=== PATIENT | female | born 1990 | race Caucasian/White ===

== ENCOUNTER 2024-03-27 02:44 | Emergency (ER) | payer SELFPAY ==
[~2024-03-27] VITALS: Ht 167.6 cm; Wt 58.1 kg
[2024-03-27 02:47] VITALS: BP_SYST 144; PULSE 82; RESP 19; TEMP 97.6; O2SAT 99
[2024-03-27 02:52] VITALS: BP_SYST 144; PULSE 82; RESP 18; TEMP 97.6; O2SAT 99
== END 2024-03-27 02:52 ==
LOC: SED 02:44
DX: Z02.89 Encounter for other administrative examinations (principal); Z91.013 Allergy to seafood; Z88.8 Allergy status to other drugs, medicaments and biological substances
CPT/HCPCS: 99283

== ENCOUNTER 2024-04-05 19:19 | Emergency (ER) | payer OTHER ==
[~2024-04-05] VITALS: Ht 167.6 cm; Wt 54.4 kg
[2024-04-05 19:21] VITALS: BP_SYST 121; PULSE 99; RESP 18; TEMP 97.5; O2SAT 98
[2024-04-05 20:36] VITALS: BP_SYST 121; PULSE 99; RESP 18; TEMP 97.5; O2SAT 98
== END 2024-04-05 20:37 | disposition home or self-care (01) ==
LOC: SED 19:19
DX: B34.9 Viral infection, unspecified (principal); Z20.822 Contact with and (suspected) exposure to COVID-19; Z91.013 Allergy to seafood; Z88.8 Allergy status to other drugs, medicaments and biological substances
CPT/HCPCS: 36415; 99283

== ENCOUNTER 2024-04-29 13:57 | Emergency (ER) | payer OTHER ==
[~2024-04-29] VITALS: Ht 167.6 cm; Wt 58.1 kg
[2024-04-29 14:10] VITALS: BP_SYST 120; PULSE 104; RESP 16; TEMP 97.8; O2SAT 99
[2024-04-29] MEDS ORDERED: HYDR-3917 PO (14:11)
[2024-04-29] MEDS ORDERED: NEOM28.37 TP (14:11)
[2024-04-29 14:38] VITALS: BP_SYST 120; PULSE 104; RESP 16; TEMP 97.8; O2SAT 99
== END 2024-04-29 14:37 | disposition home or self-care (01) ==
LOC: SED 13:57
DX: L55.9 Sunburn, unspecified (principal); R00.2 Palpitations; Z91.013 Allergy to seafood; Z88.8 Allergy status to other drugs, medicaments and biological substances; Z79.899 Other long term (current) drug therapy; Z79.2 Long term (current) use of antibiotics
CPT/HCPCS: 99283

== ENCOUNTER 2024-05-17 20:36 | Emergency (ER) | payer OTHER ==
[~2024-05-17] VITALS: Ht 167.6 cm; Wt 54.4 kg
[~2024-05-17 20:36] MED LIST: HYDR-3917 PO; NEOM28.37 TP
[2024-05-17 20:53] VITALS: BP_SYST 153; PULSE 80; RESP 16; TEMP 96.9; O2SAT 96
[2024-05-17 20:55] VITALS: BP_SYST 153; PULSE 80; RESP 16; TEMP 96.9; O2SAT 96
== END 2024-05-17 20:55 | disposition left against medical advice (07) ==
LOC: SED 20:36
DX: M79.605 Pain in left leg (principal); M79.604 Pain in right leg; G47.9 Sleep disorder, unspecified; R00.0 Tachycardia, unspecified; Z91.013 Allergy to seafood; Z88.8 Allergy status to other drugs, medicaments and biological substances; Z79.899 Other long term (current) drug therapy
CPT/HCPCS: 99281